=== PATIENT | female | born 1970 | race Caucasian/White ===

== ENCOUNTER 2016-08-16 21:13 | Emergency (ER) | payer MEDICARE, OTHER ==
[~2016-08-16] VITALS: Ht 167.6 cm; Wt 73.1 kg
[~2016-08-16 21:13] MED LIST: NITR-58 PO; PHEN-537 PO
[2016-08-16 21:23] VITALS: Ht 167.6 cm; Wt 73.1 kg
[2016-08-16] MEDS ORDERED: ACETAMINOPHEN 325 MG TAB PO STA (22:08)
[2016-08-16] MEDS ORDERED: LORA-186 PO (22:26)
[2016-08-16] MEDS ORDERED: ACET325T33 PO (22:26)
--- NOTE | 2016-08-16 22:43 | ERD ---
ER Documentation Chief Complaint Date/Time DATE: 08/16/16 TIME: 22:37 Chief Complaint headache/abdominal pain x 1 day HPI This is a 45-year-old female presenting to the emergency department who brings her son for the same complaint complaining of headache, nasal congestion for the past day. Patient denies any abdominal pain however she states that she does have gas. Patient states that pain is moderate in severity, she denies cough, sore throat, nausea, vomiting, diarrhea, constipation. She has not taken any medications for this ROS All systems reviewed and are negative except as per history of present illness. Medications Home Meds Active Scripts Loratadine* (Claritin*) 10 Mg Tablet, 10 MG PO DAILY, #20 TAB Prov:SINAN MURILLO PA-C 08/16/16 Acetaminophen* (Tylenol*) 325 Mg Tablet, 2 TAB PO Q4 Y for PAIN AND OR ELEVATED TEMP, #30 TAB Prov:SINAN MURILLO PA-C 08/16/16 Phenazopyridine Hcl* (Pyridium*) 100 Mg Tab, 100 MG PO TID Y for PAIN, #15 TAB 0 Refills Prov:CHARLIE SAMUELS PA-C 07/14/15 Nitrofurantoin Monohyd Macrocr* (Macrobid*) 100 Mg Capsr, 100 MG PO BID, #14 CAP 0 Refills Prov:CHARLIE SAMUELS PA-C 07/14/15 Allergies Allergies: Coded Allergies: penicillin (Verified Allergy, Unknown, 08/16/16) PMhx/Soc History of Surgery: Yes (BREAST BIOPSY) Anesthesia Reaction: No Hx Neurological Disorder: No Hx Respiratory Disorders: No Hx Cardiac Disorders: No Hx Psychiatric Problems: No Hx Miscellaneous Medical Probl: Yes (HYPERLIPIDEMIA) Hx Alcohol Use: No Hx Substance Use: No Hx Tobacco Use: No Physical Exam Vitals Vital Signs Date Time Temp Pulse Resp B/P Pulse Ox O2 Delivery O2 Flow Rate FiO2 08/16/16 21:23 97.9 63 20 120/61 100 Physical Exam GENERAL: well-developed/well-nourished, in no apparent distress, non-toxic appearing HEAD: NC/AT, no swelling noted in frontal or maxillary areas EARS: bilateral tympanic membrane is intact without erythema or effusion NARES: congested THROAT: oropharynx non-erythematous without exudates, no tonsil enlargement, post nasal drip EYES: Conjunctiva normal NECK: Supple, no lymphadenopathy PULM: CTA bilaterally, no rales, rhonchi, or wheezing heard CV: Normal S1S2, RRR, good capillary refill GI: Soft, non-distended, normal bowel sounds, non-tender BACK: No midline tenderness, no masses EXT No clubbing, cyanosis, or edema NEURO: Alert and Orientated SKIN: Intact, normal turgor PSYCH: Normal mood and mentation Results 24 hrs Current Medications Medications (Trade) Dose Ordered Sig/Kory Route PRN Reason Start Time Stop Time Status Last Admin Dose Admin Acetaminophen (Tylenol Tab) 650 mg ONCE STAT PO 08/16/16 22:08 08/16/16 22:09 DC 08/16/16 22:21 Procedures/MDM This is a 45-year-old female presenting to the emergency department complaining of headache, congestion and foul-smelling flatulence for the past day. On examination patient had a normal neurological exam, she appears well, she was nontender abdomen. Patient's lungs are clear bilaterally. She has stable vital signs and afebrile. This is likely due to a viral upper respiratory infection. I have low suspicion for meningitis, subarachnoid hemorrhage, meningitis, stroke. Pain relief was given in the ED with some improvement. Neurology exam was normal and I don't recommend a CT scan at this time. Patient was given Tylenol in the ED, I have reassessed patient and she feels a lot better. She states that her gas went down. Hemodynamically stable and neurovascularly intact. Prescriptions Tylenol and Claritin were given. Discussed to follow up with a primary care physician in the next couple days. Return to the ER if condition worsens or not improving as expected. Patient agreed and understood this plan. Departure Diagnosis: Primary Impression: Headache Headache type: unspecified Headache chronicity pattern: acute headache Intractability: not intractable Qualified Code: R51 - Acute nonintractable headache, unspecified headache type Condition: Stable Patient Instructions: Sinus Headaches, Self-Care for Headaches Referrals: NO PRIMARY,CARE PHYSICIAN (PCP) bruno doctora Additional Instructions: Visite a bruno danish hood para un EXAMEN.Regrese a estas instalaciones si no se mejora alek esperbamos o alek le dijimos. [place] toda la medicina marleni y alek se le indic. Regrese a estas instalaciones si no se mejora alek esperbamos o alek le dijimos. SINAN MURILLO PA-C Aug 16, 2016 22:43
== END 2016-08-16 23:09 | disposition home or self-care (01) ==
LOC: FTE 21:13
DX: R51 Headache (principal)
CPT/HCPCS: 99283

== ENCOUNTER 2017-01-13 16:02 | Emergency (ER) | payer MEDICARE, OTHER ==
[~2017-01-13] VITALS: Ht 167.6 cm; Wt 71.0 kg
[~2017-01-13 16:02] MED LIST changes: +ACET325T33 PO; +LORA-186 PO
[2017-01-13 16:03] VITALS: Ht 167.6 cm; Wt 71.0 kg
[2017-01-13 17:43] LABS: BASOPHIL # 0.1 10^3/ul (0.0-0.1); BASOPHILS % 0.6 % (0.0-2.0); EOSINOPHILS # 0.5 10^3/ul (0.0-0.5); EOSINOPHILS % 5.9 % (0.0-7.0); HEMATOCRIT 37.7 % (37.0-47.0); HEMOGLOBIN 12.6 g/dl (12.0-16.0); LYMPHOCYTES # 2.5 10^3/ul (0.8-2.9); LYMPHOCYTES % 28.7 % (15.0-51.0); MEAN CORPUSCULAR HEMOGLOBIN 30.9 pg (29.0-33.0); MEAN CORPUSCULAR HGB CONC 33.4 g/dl (32.0-37.0); MEAN CORPUSCULAR VOLUME 92.4 fl (82.0-101.0); MEAN PLATELET VOLUME 9.2 fl (7.4-10.4); MONOCYTE # 0.6 10^3/ul (0.3-0.9); MONOCYTES % 7.3 % (0.0-11.0); NEUTROPHILS % 57.3 % (39.0-77.0); PLATELET COUNT 246 10^3/UL (140-415); RED BLOOD COUNT 4.08 10^6/ul (4.20-5.40); WHITE BLOOD COUNT 8.8 10^3/ul (4.8-10.8)
[2017-01-13 18:02] LABS: CALCIUM 10.3 mg/dl (8.4-10.2); CREATININE 1.16 mg/dl (0.44-1.00); POTASSIUM 4.1 mmol/L (3.5-5.1)
[2017-01-13 18:11] LABS: ADD UMIC YES; UR ASCORBIC ACID NEGATIVE (NEGATIVE); UR BILIRUBIN (Dip) NEGATIVE (NEGATIVE); UR BLOOD (Dip) 3+ mg/dL (NEGATIVE); UR CLARITY CLEAR (CLEAR); UR COLOR YELLOW (YELLOW); UR GLUCOSE (Dip) NEGATIVE (NEGATIVE); UR KETONES (Dip) NEGATIVE (NEGATIVE); UR LEUKOCYTE ESTERASE (Dip) NEGATIVE Leu/ul (NEGATIVE); UR NITRITE (Dip) NEGATIVE (NEGATIVE); UR RBC 142 /HPF (0-5); UR SPECIFIC GRAVITY (Dip) 1.013 (1.003-1.030); UR TOTAL PROTEIN (Dip) 1+ mg/dl (NEGATIVE); UR UROBILINOGEN (Dip) NEGATIVE (NEGATIVE)
--- NOTE | 2017-01-13 18:33 | ERD ---
ER Documentation Chief Complaint Date/Time DATE: 01/13/17 TIME: 18:27 Chief Complaint pain/burning with urination x 1 week HPI Patient is a 46-year-old female with a past medical history nephrolithiasis who presents emergency department for dysuria, frequency and hematuria 1 week. Patient states she saw her clinic 2 days ago. Patient states she was told she had a UTI at that time. Patient states when she went to the pharmacy to strip picker her prescription, she was given a prescription for Tylenol only. Patient was not prescribed antibiotics. Patient states she is having right-sided flank pain. She has describes the pain to be "needlelike". Patient states she has had kidney stones in the past. I reviewed the patient's charts. Patient has had CT scans of the abdomen and pelvis in 2013 as well as 2016, which are both negative for nephrolithiasis. Patient did have findings of hematuria at previous visits. Patient states she does not follow-up with the urologist. Patient denies any fevers, chills, nausea, vomiting, upper abdominal pain or loss of consciousness. ROS All systems reviewed and are negative except as per history of present illness. Medications Home Meds Active Scripts Nitrofurantoin Monohyd Macrocr* (Macrobid*) 100 Mg Capsr, 100 MG PO BID for 5 Days, CAP Prov:ROGER HDZ PA-C 01/13/17 Loratadine* (Claritin*) 10 Mg Tablet, 10 MG PO DAILY, #20 TAB Prov:SINAN MURILLO PA-C 08/16/16 Acetaminophen* (Tylenol*) 325 Mg Tablet, 2 TAB PO Q4 Y for PAIN AND OR ELEVATED TEMP, #30 TAB Prov:SINAN MURILLO PA-C 08/16/16 Phenazopyridine Hcl* (Pyridium*) 100 Mg Tab, 100 MG PO TID Y for PAIN, #15 TAB 0 Refills Prov:CHARLIE SAMUELS PA-C 07/14/15 Nitrofurantoin Monohyd Macrocr* (Macrobid*) 100 Mg Capsr, 100 MG PO BID, #14 CAP 0 Refills Prov:CHARLIE SAMUELS PA-C 07/14/15 Allergies Allergies: Coded Allergies: penicillin (Verified Allergy, Unknown, 01/13/17) PMhx/Soc History of Surgery: Yes (BREAST BIOPSY) Anesthesia Reaction: No Hx Neurological Disorder: No Hx Respiratory Disorders: No Hx Cardiac Disorders: No Hx Psychiatric Problems: No Hx Miscellaneous Medical Probl: Yes (HYPERLIPIDEMIA) Hx Alcohol Use: No Hx Substance Use: No Hx Tobacco Use: No Physical Exam Vitals Vital Signs Date Time Temp Pulse Resp B/P Pulse Ox O2 Delivery O2 Flow Rate FiO2 01/13/17 16:03 98.0 85 18 114/70 98 Physical Exam GENERAL: Well-developed, well-nourished female. Appears in no acute distress. HEAD: Normocephalic, atraumatic. EYES: Pupils are equally reactive bilaterally. EOMs grossly intact. No conjunctival erythema. ENT: Moist mucous membranes. No uvula deviation. No kissing tonsils. NECK: Supple. No meningismus. Normal range of motion of the neck. LUNG: Clear to auscultation bilaterally. No rhonchi, wheezing, rales or coarse breath sounds. HEART: Regular rate and rhythm. No murmurs, rubs or gallops. ABDOMEN: Soft, nontender, and nondistended. Positive bowel sounds in all four quadrants. No rebound tenderness, no guarding. (-) McBurney's point tenderness. Minimal right CVA tenderness. BACK: No midline tenderness. EXTREMITIES: Equal pulses bilaterally. No peripheral clubbing, cyanosis or edema. No unilateral leg swelling. NEUROLOGIC: Alert and oriented. Moving all four extremities without any difficulty. Normal speech. Steady gait. SKIN: Normal color. Warm and dry. No rashes or lesions. Result Diagram: 01/13/17 1720 01/13/17 1720 Results 24 hrs Laboratory Tests Test 01/13/17 17:15 01/13/17 17:20 Urine Color YELLOW Urine Clarity CLEAR Urine pH 6.0 Urine Specific [place] 1.013 Urine Ketones NEGATIVEmg/dL Urine Nitrite NEGATIVEmg/dL Urine Bilirubin NEGATIVEmg/dL Urine Urobilinogen NEGATIVEmg/dL Urine Leukocyte Esterase NEGATIVELeu/ul Urine Microscopic RBC 142/HPF Urine Microscopic WBC 6/HPF Urine Hemoglobin 3+mg/dL Urine Glucose NEGATIVEmg/dL Urine Total Protein 1+mg/dl White Blood Count 8.810^3/ul Red Blood Count 4.0810^6/ul Hemoglobin 12.6g/dl Hematocrit 37.7% Mean Corpuscular Volume 92.4fl Mean Corpuscular Hemoglobin 30.9pg Mean Corpuscular Hemoglobin Concent 33.4g/dl Red Cell Distribution Width 12.0% Platelet Count 96851^3/UL Mean Platelet Volume 9.2fl Neutrophils % 57.3% Lymphocytes % 28.7% Monocytes % 7.3% Eosinophils % 5.9% Basophils % 0.6% Nucleated Red Blood Cells % 0.0/100WBC Neutrophils # 5.010^3/ul Lymphocytes # 2.510^3/ul Monocytes # 0.610^3/ul Eosinophils # 0.510^3/ul Basophils # 0.110^3/ul Nucleated Red Blood Cells # 0.010^3/ul Sodium Level 143mmol/L Potassium Level 4.1mmol/L Chloride Level 100mmol/L Carbon Dioxide Level 28mmol/L Anion Gap 19 Blood Urea Nitrogen 26mg/dl Creatinine 1.16mg/dl Glucose Level 96mg/dl Calcium Level 10.3mg/dl Beta HCG, Quantitative < 2.4mIU/ml Procedures/MDM ED COURSE: The patient was stable throughout ED course. I kept the patient and/or family informed of laboratory and diagnostic imaging results throughout the ED course. DIAGNOSTIC IMAGING: Read by radiologist. DIAGNOSTIC IMAGING REPORT Patient: KEELEY CARDENAS : 1970 Age: 46 Sex: F MR #: [id number] DOS: 01/13/17 0000 Ordering MD: ROGER HDZ PA-C Location: [facility] Room/Bed: PROCEDURE: Renal US. CLINICAL INDICATION: flank pain, hematuria TECHNIQUE: Multiple sonographic images of the kidneys were obtained. The images were reviewed on a PACS workstation. COMPARISON: No prior studies are available for comparison. FINDINGS: The kidneys are well visualized. The right kidney measures 9.9 cm. The left kidney measures 10.1 cm. There are no focal areas of abnormal echogenicity. There is no evidence for obstructive uropathy. IMPRESSION: Unremarkable renal ultrasound. Physician Daniel Date Time Electronically viewed and signed by Physician Daniel on 01/13/2017 18 :55 ML/ CC: ROGER HDZ PA-C PROCEDURES: None. MEDICAL DECISION MAKING: This is a 46-year-old female presents for concerns of dysuria, hematuria and right-sided flank pain 1 week. Patient does admit to history of kidney stones. Patient has had numerous CT scans of the abdomen and pelvis in the past. I reviewed both these studies in 2013 as well as 2016 which are both negative for nephrolithiasis. Patient has had hematuria in the past. Patient was advised to see urologist however she states she has not seen a urologist yet. Most recently patient saw her primary care physician who diagnosed her with a UTI. She did not start antibiotics given that she was not prescribed any. Vital signs were reviewed. Patient was afebrile. Patient's CBC showed no signs of a systemic infection or anemia. Patient's CMP was unremarkable except for an elevated BUN and slightly elevated creatinine. Today's BUN and creatinine levels were compared to previous visits. It seems that patient does have a history of elevated BUN and creatinine levels in the past. I discussed these findings with my supervising physician Dr. Akhtar, does not feel that these levels require admission. Patient's UA did show WBCs and RBCs. No leukocyte esterase or nitrates were noted. Kidney ultrasound was unremarkable. At this time, the patient's presentation is most consistent with UTI is early pyelonephritis with hematuria. Patient was advised to follow-up with urologist for further management of her symptoms. Low suspicion for further nephrolithiasis, appendicitis, diverticulitis, diverticulosis, constipation, , PID, ovarian torsion or tubo-ovarian abscess. Unable to rule bladder malignancy given ongoing hematuria. PRESCRIPTIONS: Keflex DISCHARGE: At this time, patient is stable for discharge and outpatient management. She was provided with copy of all blood work and imaging studies obtained today. I have instructed the patient to follow-up with his/her primary care physician in 1-2 days. She was strongly urged to follow-up with the urologist given her ongoing hematuria and recurrent UTIs. Referral information provided.. I have instructed the patient to promptly return to the ER at any time for any new or worsening symptoms including increased pain, fever, nausea, vomiting, urinary changes or weakness. The patient and/or family expressed understanding of and agreement with this plan. All questions were answered. Home care instructions were provided. Departure Condition: Stable Patient Instructions: Understanding Urinary Tract Infections (UTIs) Referrals: [facility]OS (PCP) TAMMY GROVES MD,ELISEO HAYDEN,SANDY BENNETT,MIGUEL ANGEL ARREGUIN,SACHA CRUZ= SADAF LANG NP Additional Instructions: Call your primary care doctor TOMORROW for an appointment during the next 1-2 days.See the doctor sooner or return here if your condition worsens before your appointment time. ROGER HDZ PA-C Jan 13, 2017 18:33
--- NOTE | 2017-01-13 18:55 | RADRPT ---
PROCEDURE: Renal US. CLINICAL INDICATION: flank pain, hematuria TECHNIQUE: Multiple sonographic images of the kidneys were obtained. The images were reviewed on a PACS workstation. COMPARISON: No prior studies are available for comparison. FINDINGS: The kidneys are well visualized. The right kidney measures 9.9 cm. The left kidney measures 10.1 cm. There are no focal areas of abnormal echogenicity. There is no evidence for obstructive uropathy. IMPRESSION: Unremarkable renal ultrasound. Physician Daniel Date Time Electronically viewed and signed by Omari De La Paz Physician on 01/13/2017 18:55 ML/
[2017-01-13] MEDS ORDERED: NITR-58 PO (19:02)
== END 2017-01-13 19:34 | disposition home or self-care (01) ==
LOC: FTE 16:02
DX: R30.0 Dysuria (principal); R31.9 Hematuria, unspecified; R10.9 Unspecified abdominal pain
CPT/HCPCS: 36415; 76775; 80048; 81001; 84702; 85025

== ENCOUNTER 2017-06-04 07:24 | Observation (INO) | payer MEDICARE, OTHER ==
[2017-06-03 13:46] LABS: BASOPHILS % 0.5 % (0.0-2.0); EOSINOPHILS # 0.5 10^3/ul (0.0-0.5); EOSINOPHILS % 6.2 % (0.0-7.0); HEMATOCRIT 35.5 % (37.0-47.0); HEMOGLOBIN 12.1 g/dl (12.0-16.0); LYMPHOCYTES # 1.9 10^3/ul (0.8-2.9); LYMPHOCYTES % 23.4 % (15.0-51.0); MEAN CORPUSCULAR HEMOGLOBIN 31.2 pg (29.0-33.0); MEAN CORPUSCULAR HGB CONC 34.1 g/dl (32.0-37.0); MEAN CORPUSCULAR VOLUME 91.5 fl (82.0-101.0); MEAN PLATELET VOLUME 9.2 fl (7.4-10.4); MONOCYTE # 0.6 10^3/ul (0.3-0.9); MONOCYTES % 7.1 % (0.0-11.0); NEUTROPHIL # 5.1 10^3/ul (1.6-7.5); NEUTROPHILS % 62.6 % (39.0-77.0); PLATELET COUNT 230 10^3/UL (140-415); RED BLOOD COUNT 3.88 10^6/ul (4.20-5.40); RED CELL DISTRIBUTION WIDTH 12.1 % (11.5-14.5); WHITE BLOOD COUNT 8.1 10^3/ul (4.8-10.8)
[2017-06-03 14:18] LABS: ALBUMIN 3.8 g/dl (3.3-4.9); ALBUMIN/GLOBULIN RATIO 1.11; BILIRUBIN,INDIRECT 0.1 mg/dl (0-1.1); BILIRUBIN,TOTAL 0.1 mg/dl (0.2-1.3); INR 0.93; PROTIME 12.5 Sec (11.9-14.9); TOTAL PROTEIN 7.2 g/dl (6.1-8.1)
[2017-06-03 14:19] LABS: PARTIAL THROMBOPLASTIN TIME 26.9 Sec (25.0-35.0)
[2017-06-03 14:23] LABS: CALCIUM 9.7 mg/dl (8.4-10.2); CREATININE 1.07 mg/dl (0.44-1.00); POTASSIUM 4.1 mmol/L (3.5-5.1)
[~2017-06-04] VITALS: Ht 167.6 cm; Wt 69.5 kg
[2017-06-04] VITALS (18 sets, daily range): BP systolic 91–141; BP diastolic 57–70; PULSE 66–84; RESP 16–27; Ht 167.6 cm; Wt 69.5 kg
[2017-06-04] MEDS: SOD CHLORIDE 0.9% 1,000 ML IV SCH ×2 (06:30→19:50)
[~2017-06-04 07:24] MED LIST changes: +ROCURONIUM 50 MG INJ ONE; +SUCCINYLCHOLINE CHLORIDE 100 MG/5 ML SYG IV ONE; +VANCOMYCIN 1 GM in NS 250 ML IVPB SCH
[2017-06-04] MEDS ORDERED: DIPHENHYDRAMINE 50 MG INJ IV ONE (13:00)
[2017-06-04] MEDS ORDERED: ISOSULFAN BLUE 1% 5 ML INJ SC ONE (15:41)
[2017-06-04] MEDS ORDERED: MIDAZOLAM 1 MG/ML 2 ML INJ ONE (16:02)
[2017-06-04] MEDS ORDERED: PROPOFOL 20 ML ONE (16:02)
[2017-06-04] MEDS ORDERED: LIDOCAINE 1% (MDV) 20 ML INJ ONE (16:02)
[2017-06-04] MEDS ORDERED: CLINDAMYCIN 600 MG/D5W (PMX) 50 ML IVPB ONE (16:20)
[2017-06-04] MEDS ORDERED: FAMOTIDINE 20 MG INJ ONE (17:28)
[2017-06-04] MEDS ORDERED: ONDANSETRON 4 MG INJ ONE (17:28)
[2017-06-04] MEDS ORDERED: SUGAMMADEX SODIUM 200 MG/2 ML VIAL IV ONE (17:30)
--- NOTE | 2017-06-04 17:43 | SIPON ---
Date/Time of Note Date/Time of Note DATE: 06/04/17 TIME: 17:41 Operative Report Preoperative Diagnosis Invasive cancer left breast Postoperative Diagnosis Same Operation/Procedure Performed Needle directed left partial mastectomy and axillary dissection utilizing sentinel lymph node technique Surgeon see signature line property management assistant Dr Maya Anesthesia: general Estimated blood loss: 10 - 50 ml's Transfusion Required none Specimen Left breast partial mastectomy specimen and axillary lymph nodes Grafts/Implants none Complications none MING HOWE MD Jun 04, 2017 17:43
[2017-06-04] MEDS ORDERED: HYDROmorphONE (0.2 MG/ML) 10ML SYG IV PRN ×3 (18:00)
[2017-06-04] MEDS ORDERED: LABETALOL HCL 20MG INJ IV PRN (18:00)
[2017-06-04] MEDS ORDERED: hydrALAzine 20 MG INJ IV PRN (18:00)
[2017-06-04] MEDS ORDERED: ONDANSETRON 4 MG INJ IV PRN ×2 (18:00)
[2017-06-04] MEDS ORDERED: ACETAMINOPHEN 1000MG/100ML IV 100 ML IVPB PRN (18:00)
[2017-06-04] MEDS ORDERED: morphine 2 MG INJ IV PRN (18:00)
[2017-06-04] MEDS ORDERED: FENTAnyl 50 MCG/ML VIAL IV PRN ×3 (18:00)
[2017-06-04] MEDS ORDERED: HYDROCODONE/APAP (5/325) TAB PO PRN (18:30)
[2017-06-04] MEDS: D5W-0.45 NACL + KCL 20 MEQ 1,000 ML IV SCH (20:28)
[2017-06-05 00:23] VITALS: BP 102/51; RESP 20
[2017-06-05 01:07] VITALS: BP 110/60; PULSE 68; RESP 18
[2017-06-05] MEDS: D5W-0.45 NACL + KCL 20 MEQ 1,000 ML IV SCH (04:32)
[2017-06-05 08:10] VITALS: BP 94/55; RESP 18
--- NOTE | 2017-06-05 09:58 | OPR ---
DATE OF OPERATION: 06/04/2017 PREOPERATIVE DIAGNOSIS: Invasive cancer, left breast. POSTOPERATIVE DIAGNOSIS: Invasive cancer, left breast. OPERATION PERFORMED: Needle-directed left partial mastectomy and axillary dissection utilizing sent inel lymph node technique. ANESTHESIA: General. ANESTHESIOLOGIST: Dr. Martínez. SURGEON: Dr. Ames. SOLUTIONS DELIVERY CONSULTANT: Anuj Maya. INDICATIONS FOR PROCEDURE: The patient is a 46-year-old female. She is known to me. I previously treated her for invasive cancer of her right breast approximately 2 years ago. She was undergoing s urveillance mammography when a suspicious lesion was found in the left breast. Core biopsy confirme d invasive cancer. She was counseled as to need for needle-directed left partial mastectomy and axi llary dissection utilizing sentinel lymph node technique. She consented and was scheduled for surge ry. DESCRIPTION OF PROCEDURE: The patient was brought to the operating theater, placed under general en dotracheal tube anesthesia. The left breast and axillary region was prepped and draped in usual rossy rile fashion. Approximately 4 mL of 1% Lymphazurin blue dye were then injected peritumoral. The br east was then gently massaged for approximately 12 minutes. Subsequently, a 3 to 4 cm incision was made in the left axillary hairline. Subcutaneous tissue was dissected with cautery down through the clavipectoral fascia. The clavipectoral fascia was incised. A dye-stained lymphatic was identifie d and traced to a somewhat enlarged lymph node. With further inspection, there were several somewha t enlarged lymph nodes in this area. Dr. Ames made the decision to proceed with level 1 dissection with blunt dissection along the chest wall. The long thoracic nerve was identified and kept out of harm's way. More superiorly, the axillary vein and thoracodorsal neurovascular bundle were identif ied and kept out of harm's way. Node bearing tissue between the long thoracic nerve and thoracodors al nerve was then harvested using the LigaSure device. Specimen was removed and sent for intraopera tive analysis performed by attending pathologist, Dr. Christopher Mcgill. He stated that he could not f ind definite evidence of metastatic disease. Therefore, the nodes were sent for permanent pathologi c analysis. No other lymph nodes were taken. The wound was irrigated. Minimal bleeding was contro lled with cautery. A #10 flat Rahul-Dennis drain was then brought through the left mid axillary li ne. It was cut to size, laid within the axilla. It was secured in place with a 2-0 nylon suture in the standard fashion. The skin incision was then reapproximated with a 4-0 Vicryl suture in subcut icular fashion. Attention was then directed performing the partial mastectomy. The localization wire was located in the upper outer quadrant of the breast was identified. A curvilinear incision was made in the senia on of the wire. Subcutaneous tissue was dissected with cautery. Skin edges were elevated with skin hooks and wide circumferential dissection of the tissue associated with the wire then took place, t aking care to ensure adequate margin. Specimen was elevated, transected, oriented, and again, Dr. Marge Mcgill came into the room and grossly inspected it. He stated the margins appeared to be jakub ssly clear. Therefore, specimen was sent for permanent pathologic analysis. The wound was irrigate d. Minimal bleeding was controlled with cautery, and the skin was then reapproximated with a 4-0 Vi cryl suture in subcuticular fashion. Dermabond was then applied to both wounds. The patient tolera laura the procedure well. The total blood loss was approximately 30 mL. There were no complications and the patient was transported in stable condition to the recovery room where a circumferential com pression dressing was applied. Dictated By: MING RODRIGUEZ/EARNESTINE Conf#: [id number] DID#: [id number]
--- NOTE | 2017-06-05 11:59 | HP ---
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 The patient was seen by Dr. Ames as an outpatient and was brought into the hospital today. Patient underwent needle-directed left p artial mastectomy and axillary dissection utilizing sentinel lymph node technique. The patient had significant postoperative pain and is being admitted for further evaluation and management. KUNAL drai n is also in place draining serosanguineous fluid. Patient denies any recent fever or chills. No h istory of vomiting. No history of shortness of breath, no history of leg pain or leg edema. No his tory of dysuria or hematuria. No history of abdominal pain, other than postoperative chest wall carmen n. REVIEW OF SYSTEMS: The rest of review of systems unremarkable. PAST SURGICAL HISTORY: None. ALLERGIES: PENICILLIN. SOCIAL HISTORY: No smoking, no alcohol. FAMILY HISTORY: Noncontributory. PHYSICAL EXAMINATION: GENERAL: The patient is conscious, awake, alert. VITAL SIGNS: Temperature 97.4, pulse 66, respirations 16, blood pressure 120/61, O2 100% on room ai r. HEENT: Atraumatic, normocephalic. Conjunctivae and lids normal. Extraocular movements intact. No se and ears normal. Oropharynx clear. NECK: Supple. No mass, no thyromegaly. CHEST: Fairly clear. No use of accessory muscles. CARDIOVASCULAR: S1, S2 normal. No murmur, gallop, or rub. ABDOMEN: Soft, nondistended, nontender. Bowel sounds positive. No palpable mass. EXTREMITIES: No leg edema. Pedal pulses palpable. SKIN: Without acute rash. NEUROLOGIC: The patient is awake, alert, fairly oriented with no gross focal deficit. LABORATORY DATA: WBC 8.1, hemoglobin 12.1, platelets 230. Sodium 139, potassium 4.1, BUN 18, creat inine 1, glucose 92, calcium 9.7, AST 44, ALT 70, alkaline phosphatase 51, albumin 3.8, . IMPRESSION: 1. Invasive cancer, left breast, status post left partial mastectomy and axillary dissection. PLAN: Patient admitted on medical floor. Patient will be started on clear liquid diet, which will be advanced as tolerated. The patient will also be started on IV fluid. For pain medication the pa tient will be given IV Tylenol, [place] and IV morphine for pain control. The patient did receive pre op IV vancomycin due to PENICILLIN ALLERGY. Further recommendations will depend on the patient's ho spital course. Dictated By: GERARDO FOSTER/EARNESTINE Conf#: [id number] DID#: [id number]
--- NOTE | 2017-06-06 07:46 | DS ---
DATE OF ADMISSION: 06/04/2017 DATE OF DISCHARGE: 06/05/2017 ADMISSION DIAGNOSES: Invasive cancer of left breast status post left partial mastectomy and axillar y dissection. DISCHARGE MEDICATIONS: The patient to take Tylenol 325 two tablets q.4 p.r.n. as before as at home. FOLLOWUP: With Dr. Ames on Wednesday. The patient will be discharged home with KUNAL drain, babar burns for KUNAL drain care. HOSPITAL COURSE: The patient is a 46-year-old female. The patient has history of treatment for inv asive cancer of right breast approximately 2 years ago. The patient was undergoing surveillance herbert mography and suspicious lesion was found in the left breast and biopsy confirmed invasive cancer. T he patient was brought in to hospital today and underwent left partial mastectomy and axillary disse ction by Dr. Ames and the patient had significant postoperative pain and therefore was kept in the hospital overnight after surgery. The patient's pain was treated with Tylenol, [place], and IV morphi ne. On day of discharge, the patient is feeling better and patient since admission did not spike an y fever, did not have any vomiting. PHYSICAL EXAMINATION ON DISCHARGE: VITAL SIGNS: On the day of discharge, temperature 97.9, pulse 65, respirations 18, blood pressure 9 4/55, O2 saturation 99% on room air. NECK: No mass. CHEST: Fairly clear. CARDIOVASCULAR: No murmur. ABDOMEN: Soft, nondistended, nontender. EXTREMITIES: No leg edema. NEUROLOGIC: The patient is awake, alert, fairly oriented with no gross focal deficit. CONDITION ON DISCHARGE: Stable. DIET: Regular. LABORATORY DATA: WBC 8.1, hemoglobin 12.1, platelet 230. Recent chemistry: Sodium 139, potassium 4.9, BUN 18, creatinine 1, glucose 92. Dictated By: GERARDO FOSTER/EARNESTINE Conf#: [id number] DID#: [id number]
== END 2017-06-05 10:35 | disposition home or self-care (01) ==
LOC: SDS 07:24 → INTOOBSV 17:43 → REC 17:43 → SDS 19:27 → MS1 19:55
PROVIDERS: ADMIT Surgery Surgical Oncology; ATTEND Surgery Surgical Oncology
DX: C50.412 Malignant neoplasm of upper-outer quadrant of left female breast (principal); Z17.0 Estrogen receptor positive status [ER+]; Z88.1 Allergy status to other antibiotic agents; Z88.0 Allergy status to penicillin
CPT/HCPCS: 19301; 38525; 38900; 80053; 84702; 84703; 85025; 85610; 85730; 88307; G0378; J0131; J1200; J2250; J2405; J3010; J3370; J3480; Q9968; 99217